=== PATIENT | male | born 2000 | race Caucasian/White ===

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

== ENCOUNTER 2018-01-30 06:01 | Day surgery (SDC) | payer MEDICAID ==
[~2018-01-30] VITALS: Ht 180.3 cm; Wt 164.7 kg
[~2018-01-30 06:01] MED LIST changes: +TRAMADOL HCL50 MG PO; +[UNRECOGNIZED DRUG - REMARK]
[2018-01-30 11:51] VITALS: BP 182/96
[2018-01-30] MEDS ORDERED: AZO STANDARD PO (12:16)
[2018-01-30] MEDS ORDERED: DITROPAN PO (12:16)
[2018-01-30] MEDS ORDERED: NORCO1 TA2 PO (12:16)
[2018-01-30] MEDS ORDERED: KEFLEX500 MG PO (12:16)
== END 2018-01-30 12:32 | disposition home or self-care (01) ==
LOC: ORM 06:01
PROVIDERS: ATTEND Urology
DX: N13.2 Hydronephrosis with renal and ureteral calculous obstruction (principal)
CPT/HCPCS: J2710; Q9967

== ENCOUNTER → 2018-03-24 | Outpatient (REF) | payer MEDICAID ==
[~2018-03-24] VITALS: Ht 180.3 cm; Wt 164.7 kg
[~2018-03-24] MED LIST changes: +AZO STANDARD PO; +DITROPAN PO; +KEFLEX500 MG PO; +NORCO1 TA2 PO
[2018-03-24 11:46] LABS: HEMATOCRIT 49.9 % (39.0-50.0); HEMOGLOBIN 16.5 g/dl (14.0-18.0); IMMATURE GRANULOCYTES 0.2 % (0.0-5.0); MEAN CELL VOLUME 83.9 fL CALC (80.0-100.0); MEAN CORPUSCULAR HGB 27.7 pG CALC (26.0-32.0); MEAN CORPUSCULAR HGB CONC 33.1 g/L CALC (32.0-36.0); NEUT# 5.07 thou/uL (1.82-7.42); RED BLOOD COUNT 5.95 mill/uL (4.70-6.10); RED CELL DISTRI WIDTH 13.6 % (11.5-15.5)
[2018-03-24 12:03] LABS: ALBUMIN 4.6 g/dL (3.2-5.0); ALKALINE PHOSPHATASE 82 u/l (38-126); ANION GAP 17 (6-22 (CALC)); BILIRUBIN, TOTAL 0.8 mg/dL (0.0-1.4); BUN 22 mg/dL (8-21); BUN/CREATININE RATIO 24 (12-20 (CALC)); CARBON DIOXIDE 23 mmol/l (22-30); CHLORIDE 107 mmol/l (95-108); CREATININE 0.9 mg/dL (0.7-1.3); GFR > 60 ML/MIN (>=60 (CALC)); GFR FOR AFR.AMER. > 60 ML/MIN (>=60 (CALC)); POTASSIUM 4.7 mmol/l (3.5-5.1); SGOT/AST 36 u/l (17-59); SODIUM 142 mmol/l (137-146); TOTAL PROTEIN 7.9 g/dL (6.3-8.2)
[2018-03-24 15:26] VITALS: BP 144/107
== END | disposition home or self-care (01) | DRG 951 ==
LOC: ORM 10:30 → PO 10:33
PROVIDERS: ATTEND Urology
DX: Z01.818 Encounter for other preprocedural examination (principal); N20.2 Calculus of kidney with calculus of ureter; Z01.811 Encounter for preprocedural respiratory examination; Z96.0 Presence of urogenital implants; Z72.9 Problem related to lifestyle, unspecified; F19.90 Other psychoactive substance use, unspecified, uncomplicated; F17.210 Nicotine dependence, cigarettes, uncomplicated; N39.3 Stress incontinence (female) (male)

== ENCOUNTER 2018-05-20 15:23 | Observation (INO) | payer MEDICAID ==
[~2018-05-20] VITALS: Ht 180.3 cm; Wt 164.4 kg
--- NOTE | 2018-05-20 15:31 | NUR ---
PT TO ROOM WTIH A STEADY GAIT.
--- NOTE | 2018-05-20 15:57 | NUR ---
PT STATES HAVING RIGHT SIDED FLANK PAIN FOR PAST 3 DAYS. PT HAS HX OF KIDNEY STONES. PT STATES PAIN IS 3/10. PT IS AOX4. DENIES ANY C/P, SOB, V/N OR WEAKNESS.
[2018-05-20 16:10] LABS: URINE BLOOD DIPSTICK TRACE-INTACT (NEGATIVE); URINE COLOR YELLOW; URINE GLUCOSE - DIPSTICK NEGATIVE (NEGATIVE); URINE KETONE TRACE mg/dL (NEGATIVE); URINE LEUK ESTERASE NEGATIVE (NEGATIVE); URINE NITRITE - DIPSTICK NEGATIVE (Negative); URINE PROTEIN - DIPSTICK 30 mg/dL (NEG-TRACE); URINE SPECIFIC GRAVITY >=1.030
[2018-05-20 16:11] LABS: IMMATURE GRANULOCYTES 0.2 % (0.0-5.0); MEAN CELL VOLUME 82.3 fL CALC (80.0-100.0); MEAN CORPUSCULAR HGB 27.6 pG CALC (26.0-32.0); MEAN CORPUSCULAR HGB CONC 33.5 g/L CALC (32.0-36.0); RED BLOOD COUNT 5.19 mill/uL (4.70-6.10); RED CELL DISTRI WIDTH 13.2 % (11.5-15.5)
[2018-05-20 16:12] LABS: URINE BILIRUBIN - DIPSTICK NEGATIVE (NEGATIVE); URINE CLARITY CLEAR
[2018-05-20 16:13] LABS: HEMATOCRIT 42.7 % (39.0-50.0); HEMOGLOBIN 14.3 g/dl (14.0-18.0)
[2018-05-20 16:21] LABS: URINE CALCIUM OXALATE CRYSTALS FEW lpf; URINE RBC 0-2 RBC/hpf (0-5); URINE WBC 0-2 WBC/hpf (0-5)
[2018-05-20 16:30] LABS: ALBUMIN 4.6 g/dL (3.2-5.0); ALKALINE PHOSPHATASE 103 u/l (38-126); ANION GAP 15 (6-22 (CALC)); BILIRUBIN, TOTAL 1.2 mg/dL (0.0-1.4); BUN 18 mg/dL (8-21); BUN/CREATININE RATIO 11 (12-20 (CALC)); CARBON DIOXIDE 22 mmol/l (22-30); CHLORIDE 107 mmol/l (95-108); CREATININE 1.6 mg/dL (0.7-1.3); GFR 56 ML/MIN (>=60 (CALC)); GFR FOR AFR.AMER. > 60 ML/MIN (>=60 (CALC)); LIPASE 25 u/l (23-300); POTASSIUM 4.1 mmol/l (3.5-5.1); SGOT/AST 38 u/l (17-59); SODIUM 140 mmol/l (137-146); TOTAL PROTEIN 7.9 g/dL (6.3-8.2)
--- NOTE | 2018-05-20 16:57 | NUR ---
PT RESTING ON STRETCHER WATCHING TV. FAMILY AT BEDSIDE, NO COMPLAINTS STATED.
--- NOTE | 2018-05-20 17:57 | NUR ---
PT RESTING ON STRETCHER, IV PATENT WITH FLUIDS RUNNING. NO COMPLAINTS STATED
--- NOTE | 2018-05-20 18:28 | NUR ---
REPORT CALLED TO ISHAAN MATIAS
[2018-05-20 18:35] VITALS: BP 139/91
--- NOTE | 2018-05-20 18:38 | NUR ---
PT ARRIVED ON FLOOR @1838 VIA STRETCHER, ACCOMPANIED BY ER STAFF AND FAMILY MEMBERS; PT WALKED WITH STEADY GAIT FROM DIGITAL SCALE TO BED; PT RECEIVING 2ND BOLUS OF NS INFUSING; PT ORIENT TO ROOM AND CALL DENG SYSTEM; PT VOICED NO CONCERNS;
--- NOTE | 2018-05-20 18:43 | NUR ---
Admission Note Report Given to: ISHAAN MATIAS Transported by: Wheelchair X Stretcher Transported with: X Nurse Transporter X Patent IV O2 Bending Press Operator TRANSPORTED TO [facility] WITHOUT INCIDENT
--- NOTE | 2018-05-20 20:20 | NUR ---
REPORT FROM ISHAAN MATIAS. PT RESTING IN BED WITH SEVERAL VISITORS IN ROOM. DISCUSSED POC. PT DENIES ANY PAIN OR DISCOMFORT AT THIS TIME. INSTRUCTED PT TO USE URINAL AND CALL LIGHT WHEN NEEDED. CALL LIGHT WITHIN REACH. WILL CONTINUE TO MART[place].
--- NOTE | 2018-05-20 22:14 | NUR ---
PT C/O BURNING PAIN IN BILATERAL FLANK AREA. OR RECIEVED FROM DR. NELSON AT THIS TIME FOR MORPHINE 2MG IV Q4H PRN AND ORDER FOR IV FLUIDS NS @100ML/HR.
--- NOTE | 2018-05-21 02:15 | NUR ---
PT RESTING IN BED WITH EYES CLOSED. NO S/S OF PAIN OR DISCOMFORT NOTED. IVF INFUSING WITHOUT DIFFICULTY. CALL LIGHT WITHIN REACH. WILL CONTINUE TO MONITOR.
[2018-05-21 05:05] VITALS: BP 151/77
--- NOTE | 2018-05-21 05:30 | NUR ---
LAB IN ROOM AT THIS TIME. PT DENIES ANY PAIN OR DISCOMFORT. CALL LIGHT WITHIN REACH.
[2018-05-21 05:55] LABS: HEMATOCRIT 41.3 % (39.0-50.0); HEMOGLOBIN 13.7 g/dl (14.0-18.0); IMMATURE GRANULOCYTES 0.1 % (0.0-5.0); MEAN CELL VOLUME 83.4 fL CALC (80.0-100.0); MEAN CORPUSCULAR HGB 27.7 pG CALC (26.0-32.0); MEAN CORPUSCULAR HGB CONC 33.2 g/L CALC (32.0-36.0); NEUT# 3.16 thou/uL (1.82-7.42); RED BLOOD COUNT 4.95 mill/uL (4.70-6.10); RED CELL DISTRI WIDTH 13.4 % (11.5-15.5)
[2018-05-21 06:13] LABS: ALBUMIN 3.8 g/dL (3.2-5.0); ALKALINE PHOSPHATASE 84 u/l (38-126); ANION GAP 13 (6-22 (CALC)); BILIRUBIN, TOTAL 0.9 mg/dL (0.0-1.4); BUN 16 mg/dL (8-21); BUN/CREATININE RATIO 12 (12-20 (CALC)); CARBON DIOXIDE 23 mmol/l (22-30); CHLORIDE 111 mmol/l (95-108); CREATININE 1.4 mg/dL (0.7-1.3); GFR > 60 ML/MIN (>=60 (CALC)); GFR FOR AFR.AMER. > 60 ML/MIN (>=60 (CALC)); MAGNESIUM 1.7 mg/dL (1.6-2.3); POTASSIUM 3.7 mmol/l (3.5-5.1); SGOT/AST 29 u/l (17-59); SODIUM 142 mmol/l (137-146); TOTAL PROTEIN 6.8 g/dL (6.3-8.2)
--- NOTE | 2018-05-21 07:00 | NUR ---
REPORT RECEIVED FROM POLLY SEBASTIAN;PT APPEARS TO BE SLEEPING IN SUPINE POSITION WITH SIGNIFICANT OTHER AT BEDSIDE;RESPIRATIONS EVEN AND UNLABORED ON RA;NO S/S OF DISTRESS NOTED;IV FLUIDS INFUSING WELL TO RAC;FALL PRECAUTIONS IN PLACE WITH BED IN THE LOWEST POSITION;CALL LIGHT IN REACH;WILL CONTINUE TO MONITOR
[2018-05-21 08:28] VITALS: BP 152/98; BP 167/113
--- NOTE | 2018-05-21 08:30 | NUR ---
PT RESTING IN BED WITH SIGNIFICANT OTHER AT BEDSIDE;VS OBTAINED AND ASSESSMENT COMPLETED;PT DENIES ANY CURRENT PAIN OR DISCOMFORTS,PAIN SCALE AND REPORTING RE-EDUCATED;RESPIRATIONS EVEN AND UNLABORED ON RA,CLEAR LUNG SOUNDS NOTED;ABDOMEN DISTENDED/SOFT ON PALPATION AND ACTIVE IN ALL 4 QUADRANTS;STRONG PEDAL PULSES;#20G TO RAC INFUSING NS @ 100ML/HR PER ORDER,SITE APPEARS HEALTHY;PT EDUCATED TO VOID IN URINAL FOR ACCURATE STRAINING BY STAFF;PT DENIES ANY ADDITIONAL NEEDS AT THIS TIME AND IS ENCOURAGED TO CALL FOR ASSISTANCE IF NEEDED;CALL LIGHT IN REACH;WILL CONTINUE TO MONITOR
--- NOTE | 2018-05-21 09:53 | NUR ---
AT BEDSIDE DISCUSSING POC.
[2018-05-21 11:25] VITALS: BP 171/77
--- NOTE | 2018-05-21 12:30 | NUR ---
SPOKE WITH .PER PT IS CLEAR FOR DICHARGE FROM [facility] STANDPOINT AND CAN FOLLOW UP WITH HIM OUT PATIENT NEXT WEEK. TO BE NOTIFIED.
--- NOTE | 2018-05-21 12:40 | NUR ---
PT RESTING IN SEMI FOWLERS POSITION WITH SIGNIFICANT OTHER AT BEDSIDE;RESPIRATIONS EVEN AND UNLABORED ON RA;PT DENIES ANY CURRENT PAIN OR NEEDS;IV FLUIDS CONTINUE TO INFUSE TO RAC;ASSESSMENT REMAINS UNCHANGED;ENCOURAGED TO CALL FOR ASSISTANCE IF NEEDED;CALL LIGHT IN REACH;WILL CONTINUE TO MONITOR
--- NOTE | 2018-05-21 15:30 | NUR ---
PT RESTING IN BED WITH SIGNIFICANT OTHER AND MOTHER AT BEDSIDE;RESPIRATIONS EVEN AND UNLABORED ON RA;DENIES ANY CURRENT PAIN OR NEEDS;IV SITE REMAINS PATENT TO RAC;PT EDUCATED ON D/C PLAN AND VERBALIZES UNDERSTANDING;ASSESSMENT REMAINS UNCHANGED;ENCOURAGED TO CALL FOR ASSISTANCE IF NEEDED;CALL LIGHT IN REACH;WILL CONTINUE TO MONITOR
[2018-05-21 16:00] VITALS: BP 164/71
--- NOTE | 2018-05-21 17:10 | NUR ---
ALL DISCHARGE INSTRUCTIONS PROVIDED AT THIS TIME,QUESTIONS ANSWERED;IV SITE REMOVED WITH CATHETER INTACT;PT ENCOURAGED TO FOLLOW UP WITH ;PT DENIES ANY ADDITIONAL NEEDS AT THIS TIME;DENIES WHEELCHAIR FOR DISCHARGE HOME.ACCOMPANIED BY SIGNIFICANT OTHER AND MOTHER.
--- NOTE | 2018-05-21 17:18 | NUR ---
Discharge instructions given. Patient verbalizes understanding of same. Discharged in stable condition via Ambulatory to Home with family. All belongings sent with pt.
== END 2018-05-21 17:18 | disposition home or self-care (01) ==
LOC: ED 15:23 → ED-I 16:51 → ED 17:16 → MS2 17:17
PROVIDERS: Family Medicine; ADMIT Internal Medicine Nephrology; ATTEND Internal Medicine Nephrology
DX: R10.11 Right upper quadrant pain (principal); N13.2 Hydronephrosis with renal and ureteral calculous obstruction; N28.9 Disorder of kidney and ureter, unspecified; F17.210 Nicotine dependence, cigarettes, uncomplicated; E66.9 Obesity, unspecified; Z87.442 Personal history of urinary calculi
CPT/HCPCS: G0378

== ENCOUNTER 2020-03-16 10:03 | Emergency (ER) | payer SELFPAY ==
[~2020-03-16] VITALS: Ht 180.3 cm; Wt 159.1 kg
[2020-03-16] MEDS ORDERED: MEDDOSEPAK PO (10:36)
[2020-03-16] MEDS ORDERED: BENADRYL 50MG C50 MG PO (10:36)
[2020-03-16] MEDS ORDERED: PEPCID20 MG PO (10:36)
[2020-03-16 10:40] VITALS: BP 158/89
== END 2020-03-16 10:40 | disposition home or self-care (01) | DRG 607 ==
LOC: ED 10:03
DX: L30.9 Dermatitis, unspecified (principal); F17.210 Nicotine dependence, cigarettes, uncomplicated